=== PATIENT | male | born 1975 | race Hispanic/Latino ===

== ENCOUNTER 2018-01-10 07:38 | Outpatient (CLI) | payer BC ==
[2018-01-10] MEDS ORDERED: Iopamidol 370 76% 100 ML VIAL ONE (16:46)
== END 2018-01-10 07:39 | disposition home or self-care (01) ==
LOC: BICCT 07:38
PROVIDERS: ATTEND Internal Medicine Hematology & Oncology
DX: C09.9 Malignant neoplasm of tonsil, unspecified (principal)
CPT/HCPCS: 70491

== ENCOUNTER 2018-01-25 14:04 | Outpatient (CLI) | payer BC ==
--- NOTE | 2018-01-26 11:01 | PET ---
PET SCAN WITH CT ATTENUATION CORRECTION: HISTORY: A 42-year-old male with right tonsil cancer, status post tonsillectomy. COMPARISON: None. CORRELATION: Neck CT performed at [facility] 01/10/18. TECHNIQUE: PET scan with CT attenuation correction is performed of the base of the brain to the proximal thighs following the intravenous administration of 10.1 mCi of [id number]. FINDINGS: HEAD AND NECK: There is increased FDG avidity involving the posterior right oropharynx, just behind the right lingua l tonsil. Maximum SUV of 7.0. Findings may represent residual malignancy versus postoperative lundy e. Reference is made to a CT From 01/10/18 performed at [facility] and does not demonstrate any obvious mucosal-based masses. There is no abnormal FDG avidity associated w ith any of the lymph nodes of the neck. CHEST: No abnormal FDG localization. ABDOMEN AND PELVIS: No abnormal FDG localization. OSSEOUS STRUCTURES: No abnormal FDG localization. IMPRESSION: Increased fluorodeoxyglucose avidity involving the posterior right oral cavity which may represent po st treatment change versus residual tumor. POS: [facility]
== END 2018-01-25 14:05 | disposition home or self-care (01) ==
LOC: PET 14:04
PROVIDERS: ATTEND Radiology Radiation Oncology
DX: C09.9 Malignant neoplasm of tonsil, unspecified (principal)
CPT/HCPCS: 78815; A9552

== ENCOUNTER 2018-07-18 07:44 | Outpatient (CLI) | payer BC ==
[2018-07-18] MEDS ORDERED: ISOVUE-370 76%-LOCM 1 ML ONE (12:21)
--- NOTE | 2018-07-18 12:35 | CT ---
POSTCONTRAST SOFT TISSUE NECK CT: HISTORY: Tonsillar cancer. The patient has undergone 30 XRT (radiation) treatment. Ninety-day checkup. Palpa ble nodule popped up 4 weeks ago under the chin. COMPARISON: 01/10/18. TECHNIQUE: Postcontrast soft tissue neck CT is performed in the axial plane. Reformatted images are submitted f or interpretation. FINDINGS: Visualized brain parenchyma at inferior orbits are unremarkable. Adequate aeration of the sinuses an d mastoid air cells. Patent aerodigestive tract. Midline fatty raphae of the tongue is preserved. Epiglottis has a maxim l caliber. Preepiglottic fat is preserved. Note, there is some edema of the preepiglottic fat. The re is a small amount of nonspecific prevertebral fluid. Fluid is presumed to be due to posttreatment change. Effacement of the right piriform sinus may be due to benign apposition of mucosa. If there is concern for underlying pathology, direct visualization can be performed. Symmetric attenuation of the parotid and submandibular glands. Thyroid gland is unremarkable. Symme tric attenuation of the sternocleidomastoid muscles. Grossly, the great vessels of the neck are patent. Upper mediastinum and lung apices are unremarkable. Cervical spine vertebral body height is maintained. There is no fracture. The central spinal canal and neural foramen are patent. There is no evidence of lymphadenopathy by size criteria. At the level of the marker, there is some induration of the fat. There is no associated enlarged lym ph node, solid or cystic lesion. IMPRESSION: 1. Post treatment changes with fluid in the prevertebral soft tissues as well as fluid in the region of the fat anterior to the epiglottis. There is no evidence of lymphadenopathy. 2. Effacement of the right piriform sinus as described above. 3. No abnormality noted at the level of the palpable marker. POS: [facility]
== END 2018-07-18 07:45 | disposition home or self-care (01) ==
LOC: BICCT 07:44
PROVIDERS: ATTEND Radiology Radiation Oncology
DX: C09.9 Malignant neoplasm of tonsil, unspecified (principal)
CPT/HCPCS: 70491